=== PATIENT | male | born 1975 | race Caucasian/White ===

== ENCOUNTER 2017-03-04 10:31 | Outpatient (CLI) | payer MEDICAID ==
--- NOTE | 2017-03-05 08:50 | XRAY Report ---
THREE VIEW RIGHT HAND: 03/04/2017 CLINICAL INDICATION: Pain. AP, lateral, oblique views of the right hand demonstrate no evidence of fracture or dislocation. No evidence of acute fracture or dislocation. An old, healed fifth metacarpal fracture is incidentally noted. No radiopaque foreign body is seen in the soft tissues. IMPRESSION: No evidence of acute fracture. TD: 03/04/2017 18:56 [facility]
--- NOTE | 2017-03-05 08:50 | XRAY Report ---
THREE VIEW RIGHT THIRD FINGER: 03/04/2017 CLINICAL INDICATION: Pain. AP, lateral, oblique views of the right middle finger demonstrate no evidence of fracture. The joint spaces are preserved. No radiopaque foreign body is seen in the soft tissues. IMPRESSION: Normal right middle finger. TD: 03/04/2017 18:59 [facility]
== END 2017-03-04 10:32 | disposition home or self-care (01) ==
LOC: DI.S 10:31
PROVIDERS: ATTEND Nurse Practitioner Family
DX: M79.644 Pain in right finger(s) (principal)
CPT/HCPCS: 73140

== ENCOUNTER 2019-02-06 18:47 | Emergency (ER) | payer SELFPAY ==
[2019-02-06] MEDS ORDERED: BUFFERED LIDOCAINE 10 ML SYRINGE SUBQ STA (19:01)
[2019-02-06] MEDS ORDERED: TETANUS/DIPHTHERIA/PERTUSSIS 0.5 ML SYRINGE IM ONE (19:01)
[2019-02-06] MEDS ORDERED: CEPHALEXIN 250 MG Prepack 8 CAP BOTTLE PO STA (20:13)
--- NOTE | 2019-02-06 20:15 | ED Physician Documentation ---
PD HPI UPPER EXT INJURY - Stated complaint Stated Complaint: RT THUMB LAC - Chief complaint Chief Complaint: Laceration - History obtained from History obtained from: Patient - History of Present Illness Location: Right (43-year-old gentleman who smokes, right-handed, works as a outside laborer. He had a few drinks tonight and was opening a can and cut it his hand on the right side. No other injuries. Tetanus is unknown.) Review of Systems Constitutional: reports: Reviewed and negative Nose: reports: Reviewed and negative Throat: reports: Reviewed and negative PD PAST MEDICAL HISTORY - Past Medical History Past Medical History: Yes Cardiovascular: None Respiratory: None Neuro: None Endocrine/Autoimmune: None GI: None : None HEENT: None Psych: None Musculoskeletal: None Derm: None - Past Surgical History Past Surgical History: No - Present Medications Home Medications: Ambulatory Orders Medication Instructions Recorded Confirmed Ibuprofen 1,600 mg PO DAILY 03/21/15 03/21/15 Cephalexin [Keflex] 500 mg PO Q6H #28 capsule 02/06/19 - Allergies Allergies/Adverse Reactions: Allergies Allergy/AdvReac Type Severity Reaction Status Date / Time No Known Drug Allergies Allergy Verified 02/06/19 18:49 - Social History Does the pt smoke?: Yes Smoking Status: Current every day smoker Does the pt drink ETOH?: Yes Does the pt have substance abuse?: Yes Substance Use and Type: Marijuana - Immunizations Immunizations are current?: No Immunizations: TDAP >10years/unknown - POLST Patient has POLST: No PD ED PE NORMAL - Vitals Vital signs reviewed: Yes - General General: Alert and oriented X 3, Other (Smells of alcohol with slow slurred speech, also smells heavily of tobacco.) - Extremities Extremities: Other (There is a 3 cm laceration on the palmar side of the right hand through the first dorsal webspace. He is insensate on the ulnar side of the thumb, and on exploration he has cut through the flexor pollicis brevis and adductor pollicis there. He is very weak in opponens strength.) - Neuro Neuro: Alert and oriented X 3, Normal speech Results - Vitals Vitals: Vital Signs - 24 hr 02/06/19 18:51 Temperature 36.5 C Heart Rate 72 Respiratory 18 Rate Blood Pressure 140/91 H O2 Saturation 99 Oxygen O2 Source Room air Procedures - Laceration (location) R hand Length in cm: 3 Wound type: Linear, Into muscle Neurovascular status: No: Sensory intact, Motor intact Tendon involvement: No: Tendon intact Anesthesia: Lidocaine 1%, With bicarb Wound Preparation: Chlorhexadine, Irrigated copiously NS Skin layer closure: Nylon, Interrupted, Size #-0 - enter number (4-0) Other: Tetanus booster given Complexity: Simple - Splint (location) R hand Splint applied by: Tech Type of splint: Fiberglass, Short arm, Thumb spica PD MEDICAL DECISION MAKING - ED course ED course: 43-year-old gentleman with deep hand laceration in the first palmar webspace with nerve injury to the thumb and what seems to be fairly complete transections of the abductor pollicis and flexor pollicis brevis. It was washed out and the skin was closed. Placed in a thumb spica splint. Call to [facility] to arrange hand follow-up. Placed on Keflex. I spoke with the [facility] delivery coordinator, she did not feel it was necessary for me to directly talk to the hand surgeon but will pass along the message and arrange for them to call the patient and arrange for close follow-up. Departure - Departure Disposition: 01 Home, Self Care Clinical Impression: Tendon laceration, Nerve injury Hand laceration Qualifiers: Encounter type: initial encounter Foreign body presence: without foreign body Laterality: right Qualified Code(s): S61.411A - Laceration without foreign body of right hand, initial encounter Condition: Good Instructions: ED Laceration Hand Prescriptions: Cephalexin [Keflex] 500 mg PO Q6H #28 capsule Comments: I called the hand surgery clinic at [facility]. They should be calling you from an unknown number in the next day or 2. If you do not hear from them, the phone number there is [phone]. Elevate as much as possible, keep the splint on. As discussed as well it is important to stop smoking to improve blood flow to your hand and improve healing. Forms: Activity restrictions
[2019-02-06 20:35] VITALS: BP 138/91
== END 2019-02-06 20:36 | disposition home or self-care (01) ==
LOC: ED 18:47
DX: S61.411A Laceration without foreign body of right hand, initial encounter (principal); S66.021A Laceration of long flexor muscle, fascia and tendon of right thumb at wrist and hand level, initial encounter; S64.91XA Injury of unspecified nerve at wrist and hand level of right arm, initial encounter; W26.8XXA Contact with other sharp object(s), not elsewhere classified, initial encounter; Y93.89 Activity, other specified; Z23 Encounter for immunization; F10.10 Alcohol abuse, uncomplicated; F17.200 Nicotine dependence, unspecified, uncomplicated
CPT/HCPCS: 12002; 29125; 90471